=== PATIENT | male | born 1950 | race Caucasian/White ===

== ENCOUNTER 2021-10-14 20:06 | Emergency (ER) | payer OTHER ==
[~2021-10-14] VITALS: Ht 167.6 cm; Wt 59.0 kg
[2021-10-14 21:04] LABS: BASO % 0.4 % (0.0-1.0); EOS # 0.5 10*3/uL (0.0-0.4); EOS % 4.2 % (1.0-4.0); HEMATOCRIT 34.5 % (42.0-52.0); LYMPH # 2.3 10*3/uL (1.3-4.4); LYMPH % 20.4 % (27.0-41.0); MEAN CELL VOLUME 79.1 fl (80.0-94.0); MEAN CORPUSCULAR HGB 24.8 pg (27.0-31.0); MEAN CORPUSCULAR HGB CONC 31.3 g/dl (33.0-37.0); MEAN PLATELET VOLUME 8.9 fl (9.6-12.3); MONO # 1.2 10*3/uL (0.1-1.0); MONO % 10.4 % (3.0-9.0); NEUT # 7.3 10*3/uL (2.3-7.9); NEUT % 64.3 % (47.0-73.0); PLATELET COUNT AUTOMATED 421 10*3/uL (130-400); RED BLOOD COUNT 4.36 10*6/uL (4.50-5.90); RED CELL DISTRI WIDTH 14.5 % (0-14.5); WHITE BLOOD COUNT 11.3 10*3/uL (4.8-10.8)
[2021-10-14 21:18] LABS: BILIRUBIN Negative (Negative); BLOOD Negative (Negative); CLARITY Clear (Clear); COLOR Yellow (Yellow); GLUCOSE Negative (Negative); KETONE Negative (Negative); LEUKO ESTERASE Negative (Negative); NITRITE Negative (Negative); PH 7.5 (4.5-8.0); SPECIFIC GRAVITY <= 1.005 (1.001-1.030); UROBILINOGEN 0.2 E.U./dl (0.0-1.0)
[2021-10-14 21:23] LABS: EPITHELIAL CELLS 0-2; WBC 0-2 wbc/hpf (0-5)
[2021-10-14 21:25] LABS: ALKALINE PHOSPHATASE 131 U/L (45-117); BUN 18 mg/dl (7-24); CHLORIDE 101 mmol/L (98-107); CREATININE 0.87 mg/dL (0.70-1.30); POTASSIUM 4.1 mmol/L (3.5-5.1); SGOT/AST 23 IU/L (3-35); SGPT/ALT 26 U/L (12-78); SODIUM 134 mmol/L (136-145); TOTAL PROTEIN 8.2 gm/dL (6.4-8.2)
[2021-10-14 21:27] LABS: URINE AMPHETAMINES < 1000 (1000ng/ml); URINE BARBITURATES > 200 (200ng/ml); URINE BENZODIAZEPINES < 200 (200ng/ml); URINE CANNABINOIDS (THC) < 50 (50ng/ml); URINE COCAINE < 300 (300ng/ml); URINE METHADONE < 300 (300ng/ml); URINE OPIATES < 300 (300ng/ml)
[2021-10-14 21:28] LABS: ACETAMINOPHEN (TYLENOL) < 5.0 ug/ml (10-30); ETHYL ALCOHOL < 3.0 mg/dl (<3)
[2021-10-14 21:28] LABS: URINE PHENCYCLIDINE < 25 (25ng/ml)
[2021-10-15] MEDS ORDERED: TYLENOL325 M1 PO (10:33)
[2021-10-15] MEDS ORDERED: VENTOLIN 02.5 MG/3 M INH (10:34)
[2021-10-15] MEDS ORDERED: ATORVASTATIN CA20 M1 PO (10:39)
[2021-10-15] MEDS ORDERED: AMLODIPINE BESYL5 MG PO (10:42)
[2021-10-15] MEDS ORDERED: MAGIC BULLET10 MG R (10:44)
[2021-10-15] MEDS ORDERED: PULMICORT0.5 MG/21 NEB (10:46)
[2021-10-15] MEDS ORDERED: FLEET ENEMA EX230 M1 R (10:47)
[2021-10-15] MEDS ORDERED: NATURE'S BLEND F1 MG PO (10:47)
[2021-10-15] MEDS ORDERED: MILK OF MA400 MG/52 PO (10:52)
[2021-10-15] MEDS ORDERED: TOPCARE OMEPRAZ20 MG PO (10:53)
[2021-10-15] MEDS ORDERED: Mysoline50 MG PO (10:56)
[2021-10-15] MEDS ORDERED: SENNA LAX8.6 M1 PO (10:58)
[2021-10-15] MEDS ORDERED: THERA M PLUS T1 EACH PO (10:58)
[2021-10-15] MEDS ORDERED: VITAMIN D325 MCG PO (11:00)
[2021-10-15] MEDS ORDERED: ZINC50 M4 PO (11:01)
[2021-10-15] MEDS ORDERED: ZYPREXA10 M1 PO (11:01)
[2021-10-15] MEDS ORDERED: ZYPREXA5 M1 PO (11:02)
== END 2021-10-15 15:07 | disposition short-term general hospital (02) ==
LOC: ED 20:06
PROVIDERS: Emergency Medicine
DX: F29 Unspecified psychosis not due to a substance or known physiological condition (principal); Z20.822 Contact with and (suspected) exposure to COVID-19; Z79.899 Other long term (current) drug therapy